=== PATIENT | male | born 1950 | race Caucasian/White ===

== ENCOUNTER 2020-07-31 04:12 | Emergency (ER) | payer OTHER ==
[~2020-07-31] VITALS: Ht 188 cm; Wt 109.1 kg
[2020-07-31 04:22] VITALS: Ht 188 cm; Wt 109.1 kg
[2020-07-31 04:56] VITALS: BP 156/78
== END 2020-07-31 05:47 | disposition left against medical advice (07) ==
LOC: ED 04:12
DX: Z53.21 Procedure and treatment not carried out due to patient leaving prior to being seen by health care provider (principal)